=== PATIENT | male | born 1995 | race Caucasian/White ===

== ENCOUNTER 2021-12-23 18:10 | Emergency (ER) | payer BC, OTHER ==
[2021-12-23 18:24] VITALS: BP 159/87; PULSE 89; TEMP 98.2; BMI 32.1
[2021-12-23] MEDS ORDERED: KETOROLAC TROMETHAMINE 30 MG/1 ML VIAL IVPUSH ONE (19:41)
[2021-12-23] MEDS ORDERED: SODIUM CHLORIDE 1,000 ML ONE (19:41)
[2021-12-23] MEDS ORDERED: KETOROLAC TROMETHAMINE 30 MG/1 ML VIAL ONE (19:49)
[2021-12-23 20:03] LABS: HEMATOCRIT 46.4 % (35.4-49); HEMOGLOBIN 16.1 G/dL (11.7-16.9); MCH 29.2 pg (25.7-33.7); MCHC 34.6 g/dl (32.0-35.9); MEAN CELL VOLUME 84.5 fl (80-96); MEAN PLT VOLUME 9.3 fl (7.5-11.1); PLATELET COUNT 186.9 10^3/uL (134-434); RBC 5.49 10^6/uL (4.00-5.60); RDW 14.6 % (11.9-15.9); WHITE BLOOD COUNT 10.7 10^3/uL (4.0-10.8)
[2021-12-23 20:06] LABS: ALBUMIN 4.5 g/dl (3.4-5.0); BILIRUBIN,TOTAL 0.7 mg/dl (0.2-1); CALCIUM 9.6 mg/dl (8.5-10); TOT PROT 7.5 g/dl (6.4-8.2)
[2021-12-23 20:09] LABS: ANISOCYTOSIS 1+
== END 2021-12-23 22:24 | disposition home or self-care (01) ==
LOC: FER 18:10
PROC: 3E033GC Introduction of Other Therapeutic Substance into Peripheral Vein, Percutaneous Approach (ICD-10-PCS; principal; 2021-12-23)
DX: R07.1 Chest pain on breathing (principal)
CPT/HCPCS: 36415; 71275-TC; 80053; 82550; 82553; 84484; 85025; 93005; 99285-25; Q9967

== ENCOUNTER 2024-05-11 19:17 | Emergency (ER) | payer BC ==
[2024-05-11 19:28] VITALS: TEMP 98.1; BMI 39.8
[2024-05-11 21:16] LABS: BASO % 1.8 % (0-2.0); EOS % 4.9 % (0-4.5); HEMATOCRIT 46.1 % (35.4-49); HEMOGLOBIN 15.7 GM/dL (11.7-16.9); LYMPH % 31.3 % (8-40); MCH 28.3 pg (25.7-33.7); MCHC 34.1 g/dl (32.0-35.9); MONO % 4.5 % (3.8-10.2); NEUT % 57.5 % (42.8-82.8); PLATELET COUNT 196 10^3/uL (134-434); RBC 5.55 M/mm3 (4.00-5.60); RDW 13.9 % (11.9-15.9); WHITE BLOOD COUNT 11.8 K/mm3 (4.0-10.0)
[2024-05-11 21:37] LABS: BLOOD UREA NITROGEN 13.5 mg/dL (7-18); CALCIUM 9.5 mg/dL (8.5-10.1)
[2024-05-11 21:40] LABS: CREATININE 0.9 mg/dL (0.55-1.3)
[2024-05-11 21:42] LABS: BILIRUBIN,TOTAL 0.4 mg/dL (0.2-1); TOT PROT 7.3 g/dl (6.4-8.2)
[2024-05-11 22:31] LABS: HIV INTERPRETATION NEGATIVE (NEGATIVE)
[2024-05-12 00:19] LABS: EPI CELLS 2 /uL (0-25.1); HYALINE CASTS 0 /uL (0-3.1); PH,URINE 5.5 (5.0-8.0); URINE APPEARANCE CLEAR; URINE BACTERIA 14 /uL (0-1359); URINE BILIRUBIN NEGATIVE (NEGATIVE); URINE COLOR YELLOW; URINE GLUCOSE (UA) NEGATIVE (NEGATIVE); URINE KETONE NEGATIVE (NEGATIVE); URINE LEUK ESTERASE NEGATIVE (NEGATIVE); URINE NITRITE NEGATIVE (NEGATIVE); URINE PROTEIN 1+ (NEGATIVE); URINE RBC 11 /uL (0-23.9); URINE UROBILINOGEN 0.2 mg/dL (0.2-1.0); URINE WBC 4 /uL (0-25.8)
[2024-05-12] MEDS ORDERED: ACETAMINOPHEN INJECTION 100 ML ONE (00:30)
[2024-05-12] MEDS: ACETAMINOPHEN 1000 MG/100 ML BAG IVPB ONE (00:36)
[2024-05-12 01:07] VITALS: BP 122/79; PULSE 57; RESP 16
== END 2024-05-12 01:30 | disposition home or self-care (01) ==
LOC: JER 19:17
PROC: 3E033NZ Introduction of Analgesics, Hypnotics, Sedatives into Peripheral Vein, Percutaneous Approach (ICD-10-PCS; principal; 2024-05-12)
DX: R11.2 Nausea with vomiting, unspecified (principal); R10.30 Lower abdominal pain, unspecified; R19.7 Diarrhea, unspecified
CPT/HCPCS: 36415; 74177-TC; 80053; 81003; 85025; 86803; 87389; 99285-25; J0131; Q9967